=== PATIENT | male | born 1995 | race Caucasian/White ===

== ENCOUNTER → 2017-08-24 | Outpatient (CLI) | payer BC | LOC: FIMAGING 16:40 | PROVIDERS: ATTEND Internal Medicine Hematology & Oncology | DX: M79.602 Pain in left arm (principal); C81.18 Nodular sclerosis Hodgkin lymphoma, lymph nodes of multiple sites; Z86.718 Personal history of other venous thrombosis and embolism ==

== ENCOUNTER → 2017-11-02 | Outpatient (CLI) | payer BC ==
[~2017-11-02] MED LIST: IOPAMIDOL (ISOVUE-300) 100 ML BTL ONE
== END ==
LOC: FIMAGING 09:49
PROVIDERS: ATTEND Internal Medicine Hematology & Oncology
DX: R10.9 Unspecified abdominal pain (principal); Z85.50 Personal history of malignant neoplasm of unspecified urinary tract organ
CPT/HCPCS: Q9967